=== PATIENT | female | born 1985 | race Caucasian/White ===

== ENCOUNTER 2016-11-19 14:25 | Inpatient (IN) ==
--- OUTSIDE RECORDS SUMMARY | 2016-11-19 14:49 | External Medical Summary | CCD ---
:1985 Author Name ADELITAREJI Eldon Address [address], [place] [id number] Care Team Providers Name Role Phone WENCESLAO LIZAMA Attending Physician Unavailable MSLOAN Chau Registered Nurse Unavailable Vital Signs Vital Sign Value Unit Date/Time Recent/Initial? Weight Measured 242 lbs 06/06/2015 19:00 Initial VS Height 68 in 06/06/2015 19:00 Initial VS BMI (Body Mass Index) 36.8 kg/m^2 06/06/2015 19:00 Initial VS BSA (Body Surface 2.29 m^2 06/06/2015 19:00 Initial VS Area) BP Systolic 118 mmHg 06/07/2015 09:10 Initial VS BP Diastolic 54 mmHg 06/07/2015 09:10 Initial VS Respiratory Rate 18 bpm 06/07/2015 09:10 Initial VS Heart Rate 76 bpm 06/07/2015 09:10 Initial VS O2 % BldC Oximetry 98 % 06/07/2015 09:10 Initial VS Body Temperature 98 degrees 06/07/2015 09:10 Initial VS O2 % BldC Oximetry 98 % 06/09/2015 00:05 Most Recent VS BP Systolic 134 mmHg 06/09/2015 07:25 Most Recent VS BP Diastolic 93 mmHg 06/09/2015 07:25 Most Recent VS Respiratory Rate 18 bpm 06/09/2015 07:25 Most Recent VS Heart Rate 108 bpm 06/09/2015 07:25 Most Recent VS Body Temperature 98 degrees 06/09/2015 07:25 Most Recent VS Allergies Allergy Code Allergy Type Reaction Status BIAXIN 058367 Drug allergy Active Procedures Procedure Code Procedure Type Date Extraction of Products of 99F08B5 ICD-10 PCS 06/07/2015 Conception, Low Cervical, Open Approach Transfusion of Nonautologous Red 51716Y3 ICD-10 PCS 06/07/2015 Blood Cells into Peripheral Vein, Percutaneous Approach CBC WITH DIFFERENTIAL 7099578 SNOMED CT 06/07/2015 CBC WITH DIFFERENTIAL 0761415 SNOMED CT 06/07/2015 CBC WITH DIFFERENTIAL 9916873 SNOMED CT 06/06/2015 History of Immunizations Unknown or Not Available. Problems Problem Code Start Date Resolved Date Status Normal 27304760 Active delivery, [id number] Active delivered Results CHEM 14 COMPREHENSIVE METABOLIC PANEL - Collect Date/Time: 06/07/2015 15:54 Test Name Code Test Result Test Units Test Ref Range GLUCOSE 2345-7 111 mg/dl L=65 H=110 BUN 3094-0 7 mg/dl L=7 H=18 CREATININE 2160-0 0.7 mg/dl L=0.7 H=1.2 BUN/CREAT 9.72 RATIO SODIUM 2951-2 133 mmol/L L=137 H=145 POTASSIUM 2823-3 4.5 mmol/L L=3.4 H=5.3 CHLORIDE 2075-0 108 mmol/L L=98 H=107 CO2 2028-9 19.0 mmol/L L=22.0 H=30.0 AST/SGOT 21 U/L L=5 H=40 ALK PHOS 85 IU/L L=32 H=91 T BILIRUBIN 0.40 mg/dl L=0.20 H=1.30 TOTAL PROTEIN 4.20 g/dl L=5.49 H=7.83 ALBUMIN 1751-7 2.1 g/dl L=3.3 H=5.0 CALCIUM 94488-9 7.9 mg/dl L=8.4 H=10.3 ALT/SGPT 9 U/L L=9 H=72 AGE 29 yrs GFR NonAA 104 GFR AA 126 CBC WITH DIFFERENTIAL - Collect Date/Time: 06/07/2015 15:54 Test Name Code Test Result Test Units Test Ref Range WBC 49839-7 14.4 th/ul L=4.3 H=11.0 NEUTROPHILS 770-8 86.6 % L=50.0 H=76.0 LYMPHOCYTES 736-9 8.5 % L=20.0 H=40.0 MONOCYTES 5905-5 4.7 % L=2.0 H=12.0 EOSINOPHILS 713-8 0.0 % L=1.0 H=3.0 BASOPHILS 706-2 0.2 % L=0.0 H=1.0 RBC 789-8 2.99 mil/ul L=4.20 H=5.40 HEMOGLOBIN 718-7 8.7 g/dl L=12.0 H=16.0 HEMATOCRIT 4544-3 26.9 % L=38.0 H=47.0 MCV 787-2 90 fL L=82 H=100 MCH 785-6 29.0 pg L=26.0 H=33.0 MCHC 786-4 32.3 g/dl L=31.0 H=36.0 RDW 788-0 13.2 % L=11.5 H=14.5 NEUTROPHILS 751-8 12.5 th/ul L=1.4 H=6.5 LYMPHOCYTES 731-0 1.2 th/ul L=1.0 H=4.0 MONOCYTES 742-7 0.7 th/ul L=0.0 H=0.7 EOSINOPHILS 711-2 0.0 th/ul L=0.0 H=0.7 BASOPHILS 704-7 0.0 th/ul L=0.0 H=0.[address] 777-3 203 th/ul L=150 H=375 BANDS MANUAL 0 % L=2 H=6 NEUT MANUAL 83 % L=50 H=70 LYMS MANUAL 12 % L=20 H=40 MONOS MANUAL 5 % L=2 H=12 EOS MANUAL 0 % L=1 H=3 BASO MANUAL 0 % L=0 H=1 METAS MANUAL 0 % MYELOS MANUAL 0 % BLASTS MANUAL 0 % ATYP LYMPHS 0 % PROLYMPH MANUAL 0 L=0 H=0 TOTAL DIFF CELLS 100 L=100 H=100 CBC WITH DIFFERENTIAL - Collect Date/Time: 06/07/2015 12:38 Test Name Code Test Result Test Units Test Ref Range WBC 59534-1 12.2 th/ul L=4.3 H=11.0 NEUTROPHILS 770-8 82.1 % L=50.0 H=76.0 LYMPHOCYTES 736-9 12.3 % L=20.0 H=40.0 MONOCYTES 5905-5 5.3 % L=2.0 H=12.0 EOSINOPHILS 713-8 0.1 % L=1.0 H=3.0 BASOPHILS 706-2 0.2 % L=0.0 H=1.0 RBC 789-8 2.93 mil/ul L=4.20 H=5.40 HEMOGLOBIN 718-7 8.3 g/dl L=12.0 H=16.0 HEMATOCRIT 4544-3 26.0 % L=38.0 H=47.0 MCV 787-2 89 fL L=82 H=100 MCH 785-6 28.3 pg L=26.0 H=33.0 MCHC 786-4 32.0 g/dl L=31.0 H=36.0 RDW 788-0 12.9 % L=11.5 H=14.5 NEUTROPHILS 751-8 10.0 th/ul L=1.4 H=6.5 LYMPHOCYTES 731-0 1.5 th/ul L=1.0 H=4.0 MONOCYTES 742-7 0.6 th/ul L=0.0 H=0.7 EOSINOPHILS 711-2 0.0 th/ul L=0.0 H=0.7 BASOPHILS 704-7 0.0 th/ul L=0.0 H=0.[address] 777-3 213 th/ul L=150 H=375 BANDS MANUAL 0 % L=2 H=6 NEUT MANUAL 82 % L=50 H=70 LYMS MANUAL 9 % L=20 H=40 MONOS MANUAL 9 % L=2 H=12 EOS MANUAL 0 % L=1 H=3 BASO MANUAL 0 % L=0 H=1 METAS MANUAL 0 % MYELOS MANUAL 0 % BLASTS MANUAL 0 % ATYP LYMPHS 0 % PROLYMPH MANUAL 0 L=0 H=0 TOTAL DIFF CELLS 100 L=100 H=100 CBC WITH DIFFERENTIAL - Collect Date/Time: 06/06/2015 10:18 Test Name Code Test Result Test Units Test Ref Range WBC 48426-7 8.1 th/ul L=4.3 H=11.0 NEUTROPHILS 770-8 75.7 % L=50.0 H=76.0 LYMPHOCYTES 736-9 16.5 % L=20.0 H=40.0 MONOCYTES 5905-5 7.2 % L=2.0 H=12.0 EOSINOPHILS 713-8 0.3 % L=1.0 H=3.0 BASOPHILS 706-2 0.3 % L=0.0 H=1.0 RBC 789-8 4.00 mil/ul L=4.20 H=5.40 HEMOGLOBIN 718-7 11.6 g/dl L=12.0 H=16.0 HEMATOCRIT 4544-3 34.8 % L=38.0 H=47.0 MCV 787-2 87 fL L=82 H=100 MCH 785-6 29.0 pg L=26.0 H=33.0 MCHC 786-4 33.3 g/dl L=31.0 H=36.0 RDW 788-0 12.7 % L=11.5 H=14.5 NEUTROPHILS 751-8 6.1 th/ul L=1.4 H=6.5 LYMPHOCYTES 731-0 1.3 th/ul L=1.0 H=4.0 MONOCYTES 742-7 0.6 th/ul L=0.0 H=0.7 EOSINOPHILS 711-2 0.0 th/ul L=0.0 H=0.7 BASOPHILS 704-7 0.0 th/ul L=0.0 H=0.[address] 777-3 159 th/ul L=150 H=375 H&H (HEMOGLOBIN & HEMATOCRIT) - Collect Date/Time: 06/08/2015 05:48 Test Name Code Test Result Test Units Test Ref Range HEMOGLOBIN 718-7 7.6 g/dl L=12.0 H=16.0 HEMATOCRIT 4544-3 22.7 % L=38.0 H=47.0 TYPE AND SCREEN - Collect Date/Time: 06/06/2015 10:18 Test Name Code Test Result Test Units Test Ref Range ABO TYPE O N/A A, B, AB OR O RH TYPE POSITIVE N/A POSITIVE OR NEGATIVE AB SCREEN NEGATIVE N/A NORMAL=NONE DETECTED CHEM 8 (BASIC METABOLIC PROFILE) - Collect Date/Time: 06/07/2015 12:38 Test Name Code Test Result Test Units Test Ref Range BUN 3094-0 6 mg/dl L=7 H=18 CREATININE 2160-0 0.6 mg/dl L=0.7 H=1.2 SODIUM 2951-2 134 mmol/L L=137 H=145 POTASSIUM 2823-3 3.7 mmol/L L=3.4 H=5.3 CHLORIDE 2075-0 110 mmol/L L=98 H=107 CO2 2028-9 19.0 mmol/L L=22.0 H=30.0 GLUCOSE 2345-7 104 mg/dl L=65 H=110 CALCIUM 72848-9 8.1 mg/dl L=8.4 H=10.3 Active Medications Medication Code Dose Units Frequency Route Modification Start Date/Time Docusate 4580535 100 MILLIGRAMS TWO TIMES PO 06/09/2015 Sodium 100MG PER DAY 08:49 Oral Capsule Prescription Detail 100 MILLIGRAMS PO TWO TIMES PER DAY Ibuprofen 328166 600 MILLIGRAMS NEEDED PO 06/09/2015 600MG Oral EVERY 6 08:49 Tablet HOURS Prescription Detail 600 MILLIGRAMS PO NEEDED EVERY 6 HOURS Lansinoh HPA 37086492536 1 EA NEEDED TOPICAL 06/09/2015 Lanolin Topical PRN APPLICATION 08:49 application Ointment Prescription Detail APPLY 1 EA TOPICAL APPLICATION NEEDED PRN oxyCODONE 7209636 1 TABLET NEEDED PO 06/09/2015 HCl-acetaminophen EVERY 4 08:49 5MG-325MG Oral Tablet HOURS Prescription Detail 1 TABLET PO NEEDED EVERY 4 HOURS Medications Administered During Visit Medication Dose Units Frequency Route Date/Time of Last Dose SALINE FLUSH 5ML 3 ML PRN IVP 06/07/2015 20:25 SYRINGE OXYCODONE/APAP(PER 1 TAB PRN Q4H PO 06/08/2015 13:31 COCET) 5/325 TAB OXYCODONE/APAP(PER 2 TAB PRN Q4H PO 06/09/2015 07:28 COCET) 5/325 TAB IBUPROFEN(MOTRIN) 600 MG PRN Q6H PO 06/09/2015 00:27 600 MG TAB DOCUSATE 100 MG BID PO 06/09/2015 07:29 SODIUM(COLACE) 100 MG CAP KETOROLAC 30 MG PRN Q6H IVP 06/07/2015 11:19 (TORADOL) 30MG VIAL NS 0.9% 1000ML X1 LVP 06/07/2015 13:09 CALCIUM CARB(TUMS) 1000 MG PRN PO 06/07/2015 13:31 500 MG TAB FUROSEMIDE(LASIX) 20 MG X1 IVP 06/07/2015 17:16 40MG/4ML VIAL Encounters Encounter Diagnosis Diagnosis Code Start Date Severe pre-eclampsia, third trimester O1413 06/06/2015 Social History Smoking Status Code Start Date End Date Current every day smoker [id number] Patient Decision Aids Unknown or Not Available. Discharge Instructions You were admitted to [facility] on 06/06/2015 18:45 with a principal diagnosis of Severe pre-eclampsia, third trimester You had the following procedures done: Extraction of Products of Conception, Low Cervical, Open Approach Transfusion of Nonautologous Red Blood Cells into Peripheral Vein, Percutaneous Approach You had the following tests done: CBC WITH DIFFERENTIAL CBC WITH DIFFERENTIAL CBC WITH DIFFERENTIAL CHEM 14 COMPREHENSIVE METABOLIC PANEL CHEM 8 (BASIC METABOLIC PROFILE) H&H (HEMOGLOBIN & HEMATOCRIT) TYPE AND SCREEN You were discharged from [facility] on 06/09/2015 11:15 Should you have any questions prior to discharge, please contact a member of your healthcare team. If you have left the hospital and have any questions, please contact your primary care physician. Discharge Notes: Discharge teaching given, patient voices understanding. Written prescriptions given to patient. Barrera Marin RN accompanied ambulatory pt with infant to private vehicle without incident. secured in rearfacing carseat. Belongings sent with patient. Chief Complaint and Reason For Visit Chief Complaint Date of Onset delivery in hospital Function Status Unknown or Not Available. Plan of Care Unknown or Not Available. Referral/Transition of Care Unknown or Not Available.
--- OUTSIDE RECORDS SUMMARY | 2016-11-19 14:49 | External Medical Summary ---
:1985 Author Organization [facility] Address [address], [address] [place], [place] [address] Care Team Providers Name Role Phone Arielle Irving Unavailable Unavailable PROBLEMS Unknown Problems ALLERGIES Unknown Allergies SOCIAL HISTORY No smoking Hx information available PLAN OF CARE VITAL SIGNS MEDICATIONS Medication Instructions Dosage Frequency Start End Date Duration Status Date PredniSONE 20 Orally Once a day 2 tablet 24h Aug, 10 days Active MG daily x 5 2017 days, then 1 daily x5 days RESULTS No Results PROCEDURES No Known procedures IMMUNIZATIONS No Known Immunizations
--- OUTSIDE RECORDS SUMMARY | 2016-11-19 14:49 | External Medical Summary | Continuity of Care Document ---
:1985 Author Organization [facility] Allergies Active Description Code Type Severity Reaction Onset Reported/ Identified Relationship Clinical to Patient Status Yes clarithromyc 3608 1 N/A breathing in problems Medications Problems Procedures Results Encounters ACCT No. Visit Discharge Status Pt. Type Provider Facility Loc./Unit Complaint Date/Time [id number] 10/31/2016 10/31/2016 CLS [facility], 13:15:00 23:59:59 Dipesh Rivera
[2016-11-19 14:53] VITALS: BMI 31.6
[2016-11-19] MEDS ORDERED: NS 1,000 ML IV ONE (14:54)
[2016-11-19] MEDS ORDERED: NS 1,000 ML IV SCH (15:00)
[2016-11-19] MEDS: CEFTRIAXONE 1 G in NS 100 ML IV SCH (15:22)
--- NOTE | 2016-11-19 15:58 | Ultrasound Report ---
Indication: Sepsis/UTI PROCEDURE: US renal BI: Encounter: Initial Comparison: None Technique: Grayscale and color Doppler sonographic imaging of both kidneys was performed. FINDINGS: Both kidneys are present with normal cortical thickness and echogenicity. No evidence for collecting system dilatation, contour deforming mass, nephrolithiasis, or abnormal perinephric fluid collection. The right kidney measures 12.4 cm in length, and the left kidney measures 11.4 cm in length. IMPRESSION: Normal renal sonogram. .
--- NOTE | 2016-11-19 16:00 | Ultrasound Report ---
Indication: Sepsis/UTI/ check PROCEDURE: US OB <= 14 weeks fetus: Age by LMP is 12 weeks and 4 days. This correlates to an DEVORA of May 30, 2017. Comparison: None Technique: Transabdominal sonographic pelvic imaging was performed. Findings: Imaging demonstrates a single living intrauterine gestation. The appearance of the embryo and gestation is normal. cardiac activity was detected at a rate of 176 bpm. Both ovaries were not seen. No abnormal adnexal mass. No free fluid. biometry: Magness rump length 6.42 cm: 12 weeks and 6 days. Impression: Single living intrauterine gestation with estimated gestational age of 12 weeks and 6 days by ultrasound. This correlates to an DEVORA of May 28, 2017. No acute abnormality seen. .
[2016-11-19] MEDS: ACETAMINOPHEN 325 MG TABLET PO PRN (16:40)
--- NOTE | 2016-11-19 16:48 | OB/GYN History & Physical ---
- History of Present Illness Date of Admission: 11/19/16 14:48 Reason for Admission: other History of Present Illness: 31 year old female presented to office with 3 day history of fever not resolved with conservative measures and Tylenol. She reported sick contacts with her son who had a fever for 12 hours and then improved. She denied significant N/V has had some Nausea with . She reports a headache when she started feeling bad but denies pain in her neck, or sensitivity to light. She is still in her first trimester and denies FM. She denies Cough, SOA or chest pain. She denies Diarrhea/constipation. Reports mild anorexia. She reports some spotting which started today is unsure if it is vaginal or urethral. She reports a history iof signifcant UTIs in past but minimal symptoms of UTI today. In the Office she was noted to febrile, Tachycardiac, blood pressure slightly elevated. Cervix was noted to closed, Lungs where CTAB, Abd was soft NT/ND, No CVA tenderness. UA showed gross blood, positive Leuks and WBC. Last menstrual period: 08/23/16 Expected Date of Delivery: 05/30/17 : 2 Para: 1 - OB History #1 Delivery Type: vaginal delivery Year: 2015 Complications: PLTCS Review of Systems - Review of Systems All systems: reviewed and no additional remarkable complaints except as stated - Constitutional Constitutional: Present: as per HPI - Cardiovascular Cardiovascular: Present: as per HPI - Respiratory Respiratory: Present: as per HPI - Gastrointestinal Gastrointestinal: Present: as per HPI - Genitourinary Genitourinary: Present: as per HPI Menstruation: Present: as per HPI, cycle < 21 days, cycle > 35 days, menses 1-7 days - Musculoskeletal Musculoskeletal: Present: as per HPI - Integumentary/Breasts Integumentary: Present: as per HPI Breasts: as per HPI - Neurological Neurological: Present: as per HPI - Psychiatric Psychiatric: Present: as per HPI PFS Patient Stated Medical History Hx Urinary Tract Infection Yes: 2015 Now Yes Medical History Updates: History of blood transfusion Surgical History: PLTCS Family History: Non Contributory - Social History Smoking status: Never smoker Alcohol intake frequency: does not drink Household members: spouse, children Medications Home Medications Medication Instructions Recorded Confirmed Type Pnv No.95/Ferrous Fum/Folic AC 1 each PO HS 11/19/16 11/19/16 History [ Multivitamin Tablet] Allergies Allergy/AdvReac Type Severity Reaction Status Date / Time clarithromycin [From Biaxin] Allergy Verified 11/19/16 14:51 Exam Vital signs: Temperature 100 F 11/19/16 15:17 Pulse Rate 91 11/19/16 16:00 Respiratory Rate 18 11/19/16 16:00 Blood Pressure 156/73 H 11/19/16 16:00 Pulse Oximetry 99 11/19/16 16:00 - Constitutional Present: mild distress - Neck Exam Present: supple, full ROM. Absent: lymphadenopathy - Chest/Breast/Axilla Exam Chest wall: Absent: tenderness - Respiratory Exam Present: CTA bilaterally - Cardiovascular Exam Present: RRR, tachycardia - Abdominal Exam Present: soft, non distended, non tender. Absent: tenderness - Extremities Exam Extremities: Present: no edema, non tender, full ROM - Neurological Exam Present: alert, oriented X3 - Skin Exam Present: intact - Psychiatric Exam Present: normal affect PROC TECH Results - Labs CBC & Chem 7: 11/19/16 15:07 11/19/16 15:07 Labs: UA Ur Collection Type Urine, clean catch 11/19/16 15:02 Urine Color Yellow (YELLOW) 11/19/16 15:02 Urine pH 5.5 (5.0-8.0) 11/19/16 15:02 Ur Specific [place] <=1.005 (1.015-1.025) L 11/19/16 15:02 Urine Protein Negative (NEGATIVE) 11/19/16 15:02 Urine Glucose (UA) Negative (NEGATIVE) 11/19/16 15:02 Urine Ketones Negative (NEGATIVE) 11/19/16 15:02 Urine Occult Blood 1+ (NEGATIVE) A 11/19/16 15:02 Urine Nitrate Negative (NEGATIVE) 11/19/16 15:02 Urine Bilirubin Negative (NEGATIVE) 11/19/16 15:02 Urine Urobilinogen 0.2 EU/DL (NORMAL) 11/19/16 15:02 Ur Leukocyte Esterase Negative (NEGATIVE) 11/19/16 15:02 Antepartum Assessment and Plan (1) Sepsis due to other etiology Current visit: Yes Status: Acute (2) and infectious disease in first trimester Current visit: Yes Status: Acute - Additional Plan Plan: other (Admit to CCU for IV fluids, ABX, Imaging Negative , Consult [facility])
--- NOTE | 2016-11-19 17:22 | Consult Note ---
Consult Information - Data of Consult Patient: new to practice Consult date: 11/19/16 Requesting Physician: Dipesh Schroeder, DO - Consult Narrative Reason for consult: fever, possible pyelonephritis History of present illness: Patient is a very pleasant 31-year-old female who is 12 weeks . She stated that she developed a fever 2 nights ago and has had fevers off and on since then. Highest fever was today and Dr. schroeder's office and was 102.8. She has had some intermittent chills and will occasionally sweat when her fever is breaking. She is taking Tylenol at home which seems to take the fever down. She's had some mild headache. She has some mild nausea but no emesis. She states she has had nausea with her but it seemed to be getting better and now she is a little nauseated again. She's not had any vomiting. She has otherwise had no other symptoms. She denies any symptoms of URI. She denies any cough or shortness of breath. She denies any chest pain. She denies any vomiting. She denies diarrhea. She denies dysuria, frequency or urgency to urinate. She denies any back pain. She denies any skin sores or rashes. She denies any numbness, tingling or weakness. She feels fairly well right now after fever has improved. In the doctor's office she was tachycardic with a heart rate of 119 but not hypotensive with blood pressure of 147/93. She was directly admitted to CCU for possible sepsis. Urinalysis at Dr. schroeder's office showed 2+ leukocyte esterase and positive white blood cells. It was sent for culture. Nitrite was negative. The patient thought she had some spotting 1 today but thinks it might have been blood in her urine. She did have frequent urinary tract infections with her last and has had some urinary tract infections while not although all of these previous UTIs were symptomatic with frequency, urgency or lateral discomfort. I was called to Dr. schroeder and asked to see the patient consultation for fever and possible pyelonephritis. The patient does note that her son who is a toddler had a fever and lethargy this weekend but symptoms only lasted about 12 hours and resolved. He did not have any other symptoms. She has had no other sick contacts. [facility] Patient Stated Medical History Hx Urinary Tract Infection Yes: 2015 Now Yes The patient had preeclampsia with her previous Frequent UTIs Medical History Updates: History of blood transfusion Surgical History: PLTCS. Tonsillectomy and adenoidectomy Family History: Her grandfather had kidney problems and frequent UTIs - Social History Smoking status: Never smoker Alcohol intake frequency: does not drink Current occupational status: other (homemaker) Review of Systems Review of systems: Comprehensive review of systems is negative other than the above in history of present illness - Integumentary/Breasts Breasts: as per HPI Medications Home Medications Medication Instructions Recorded Confirmed Type Pnv No.95/Ferrous Fum/Folic AC 1 each PO HS 11/19/16 11/19/16 History [ Multivitamin Tablet] Allergies Allergy/AdvReac Type Severity Reaction Status Date / Time clarithromycin [From Biaxin] Allergy Verified 11/19/16 14:51 Exam Vital Signs: Temperature 100 F 11/19/16 15:17 Pulse Rate 90 11/19/16 17:00 Respiratory Rate 16 11/19/16 17:00 Blood Pressure 154/64 H 11/19/16 17:00 Pulse Oximetry 98 11/19/16 17:00 Oxygen Delivery Method Room Air Height/Weight/BMI: Height 1.75 m Weight 97.3 kg Body Mass Index 31.6 Comments: GEN-alert, oriented, no acute distress. Moves all 4 extremities without difficulties HEENT-sclera anicteric, pupils equal, oropharynx is moist NECK-supple, no lymphadenopathy CV-regular rate and rhythm without murmur, S3 or S4 CHEST-clear to auscultation bilaterally ABD-soft, nontender, nondistended, no pain over the bladder or uterus to palpation. Normal bowel sounds -no [place] EXT-no edema NEURO-alert and oriented 3, moves all 4 extremities without difficulty, no focal deficits noted SKIN-warm and dry and without rashes. Results - Labs CBC & Chem 7: 11/19/16 15:07 11/19/16 15:07 Labs: Blood cultures are pending Urine cultures are pending Urinalysis here shows specific gravity less than 1.005, S1 occult blood, no RBCs or white blood cells seen, trace bacteria Lactate is 1.0 Liver enzymes are all normal Microbiology Results: Microbiology 11/19/16 15:07 Peripheral/Iv Start Blood Culture - Preliminary Culture Initiated - Results Pending 11/19/16 15:08 Peripheral/Iv Start Blood Culture - Preliminary Culture Initiated - Results Pending 11/19/16 15:02 Urine, Voided (Cc/notcc) Urine Culture - Preliminary Culture Initiated - Results Pending - Imaging and Cardiology US - abdomen Additional comments: Renal sonogram was obtained and was normal Normal ultrasound Assessment and Plan Assessment and Plan: Impression Fever-possibly secondary to UTI with abnormal urinalysis as an outpatient History of frequent UTIs 12 week Hypokalemia Mild headache Plan Patient has received 1 L of IV fluids. We'll hold off on any further fluids if patient is eating and drinking well and lactate remains normal. Agree with Rocephin 1 g IV daily. Await urine culture from the clinic and from this hospitalization Repeat lactate this evening Replace potassium Tylenol for fever CBC with differential and basic metabolic profile tomorrow Thank you for this consultation. Francoise follow along with you Hospital Course Summary Disclaimer: The visit summary below is not to be considered part of the above Progress Note. Sepsis Assessment - Evaluation Sepsis screening result: No Definite Risk
[2016-11-20] MEDS: ACETAMINOPHEN 325 MG TABLET PO PRN (00:09)
--- NOTE | 2016-11-20 10:30 | Progress Note ---
Subjective: The patient states that she is feeling okay. She had a low-grade fever overnight and was a little sweaty but did not have chills. She is eating and drinking well. She denies any upper respiratory infection symptoms. She denies any cough. She denies any dysuria. She denies any diarrhea. She denies any abdominal pain. She denies back pain. She has no complaints. Objective Vital signs: Temperature 98.7 F 11/20/16 07:15 Pulse Rate 89 11/20/16 09:00 Respiratory Rate 25 H 11/20/16 09:00 Blood Pressure 141/78 H 11/20/16 09:00 Pulse Oximetry 98 11/20/16 09:00 Oxygen Delivery Method Room Air Height/Weight/BMI: Height 1.75 m Weight 97.6 kg Body Mass Index 31.6 Comments: GEN-alert, oriented, no acute distress HEENT-sclera anicteric, oropharynx is moist NECK-supple CV-regular rate and rhythm CHEST-clear to auscultation bilaterally ABD-soft, nontender, nondistended with positive bowel sounds Back-no CVA tenderness -no [place] EXT-no edema, SCDs are on NEURO-no focal deficits SKIN-no rashes Results - Labs CBC & Chem 7: 11/20/16 04:27 11/20/16 04:27 Labs: Lactate normal 2 yesterday Microbiology Results: Microbiology 11/19/16 15:02 Urine, Voided (Cc/notcc) Urine Culture - Preliminary No Growth After 1 Day 11/19/16 15:07 Peripheral/Iv Start Blood Culture - Preliminary Culture Initiated - Results Pending 11/19/16 15:08 Peripheral/Iv Start Blood Culture - Preliminary Culture Initiated - Results Pending Assessment and Plan Assessment and Plan: 11/20/2016 -Dr. Kruger Impression Fever-possibly secondary to UTI with abnormal urinalysis as an outpatient. Urine culture here negative. Urine culture at the outpatient clinic is pending. Blood cultures here are negative. White count remains normal without left shift. Viral respiratory panel was negative. History of frequent UTIs 12 week Hypokalemia-resolved Mild headache Mild elevated blood pressure 140 systolic. History of preeclampsia. Plan Discussed with Dr. schroeder. He would like to keep her in the hospital on Rocephin today and likely discharge tomorrow if doing well. I will transfer the patient out of CCU and to the medical floor today. Increase activity as tolerated. Continue Rocephin. Overall, the patient appears to be doing well. Continue to monitor blood pressure. Sepsis Assessment - Evaluation Sepsis screening result: No Definite Risk Hospital Course Summary Disclaimer: The visit summary below is not to be considered part of the above Progress Note. Hospital Course: 11/19/2016 Impression Fever-possibly secondary to UTI with abnormal urinalysis as an outpatient History of frequent UTIs 12 week Hypokalemia Mild headache Plan Patient has received 1 L of IV fluids. We'll hold off on any further fluids if patient is eating and drinking well and lactate remains normal. Agree with Rocephin 1 g IV daily. Await urine culture from the clinic and from this hospitalization Repeat lactate this evening Replace potassium Tylenol for fever CBC with differential and basic metabolic profile tomorrow Thank you for this consultation. Francoise follow along with you 11/20/16 10:26
--- NOTE | 2016-11-20 11:10 | OB/GYN Progress Note ---
ENVIRONMENTAL FIELD PROFESSIONAL Progress Note - Subjective Today's Date: 11/20/16 Doing well. No complaints. No bleeding. No dysuria. No URI complaints. - Objective Vital signs: Temperature 98.7 F 11/20/16 07:15 Pulse Rate 89 11/20/16 09:00 Respiratory Rate 25 H 11/20/16 09:00 Blood Pressure 141/78 H 11/20/16 09:00 Pulse Oximetry 98 11/20/16 09:00 Oxygen Delivery Method Room Air Urine Output: good General: alert and oriented No acute distress. Laboratory Result: 11/20/16 04:27 11/20/16 04:27 Labs: UA Ur Collection Type Urine, clean catch 11/19/16 15:02 Urine Color Yellow (YELLOW) 11/19/16 15:02 Urine pH 5.5 (5.0-8.0) 11/19/16 15:02 Ur Specific [place] <=1.005 (1.015-1.025) L 11/19/16 15:02 Urine Protein Negative (NEGATIVE) 11/19/16 15:02 Urine Glucose (UA) Negative (NEGATIVE) 11/19/16 15:02 Urine Ketones Negative (NEGATIVE) 11/19/16 15:02 Urine Occult Blood 1+ (NEGATIVE) A 11/19/16 15:02 Urine Nitrate Negative (NEGATIVE) 11/19/16 15:02 Urine Bilirubin Negative (NEGATIVE) 11/19/16 15:02 Urine Urobilinogen 0.2 EU/DL (NORMAL) 11/19/16 15:02 Ur Leukocyte Esterase Negative (NEGATIVE) 11/19/16 15:02 - Assessment and Plan (1) Sepsis due to other etiology Assessment and Plan: Office urine culture is still pending. Dr. Kruger is transferring the patient out of the ICU. Dr. Obregon would like to continue her IV antibiotics for now and hopefully DC tomorrow.
[2016-11-20] MEDS: CEFTRIAXONE 1 G in NS 100 ML IV SCH (15:20)
[2016-11-21 00:27] VITALS: RESP 16
[2016-11-21 08:12] VITALS: BP 129/74; PULSE 90; O2SAT 100
[2016-11-21 08:22] VITALS: TEMP 97.3
--- NOTE | 2016-11-21 08:27 | Discharge Summary ---
[place] Information/Hospital Course Date of admission: 11/19/16 14:48 Anticipated date of discharge: 11/21/16 Attending Physician: Dipesh Obregon DO Consults: 11/19/16 15:04 Physician Consult [CONS] Routine Consulting Provider: Erika Kruger Reason For Exam: Sepsis Ordering Provider has Notified [employer] Laborer: Yes (1) Sepsis due to other etiology Status: Acute (2) and infectious disease in first trimester Status: Acute - Hospital Course Hospital Course: 11/19/2016 Impression Fever-possibly secondary to UTI with abnormal urinalysis as an outpatient History of frequent UTIs 12 week Hypokalemia Mild headache Plan Patient has received 1 L of IV fluids. We'll hold off on any further fluids if patient is eating and drinking well and lactate remains normal. Agree with Rocephin 1 g IV daily. Await urine culture from the clinic and from this hospitalization Repeat lactate this evening Replace potassium Tylenol for fever CBC with differential and basic metabolic profile tomorrow Thank you for this consultation. Willberry follow along with you 11/20/16 10:26 AF , UA negative Doing well 11/21/16 AF desires dismissal Imaging Studies: Renal Sono, ,14 wga sono Microbiology 11/19/16 15:02 Urine, Voided (Cc/notcc) Urine Culture - Final No Growth After 2 Days 11/19/16 15:07 Peripheral/Iv Start Blood Culture - Preliminary No Growth After 1 Day 11/19/16 15:08 Peripheral/Iv Start Blood Culture - Preliminary No Growth After 1 Day Laboratory: Abnormal Labs 11/19/16 11/19/16 11/19/16 15:02 15:07 15:07 Reactive Lymphs % 4.0 H Abs React Lymphs (Man) 0.3 H Potassium 3.3 L Chloride Creatinine 0.6 L Ur Specific [place] <=1.005 L Urine Occult Blood 1+ A Urine Bacteria Trace H 11/20/16 04:27 Reactive Lymphs % Abs React Lymphs (Man) Potassium Chloride 109 H Creatinine 0.5 L Ur Specific [place] Urine Occult Blood Urine Bacteria SPECIAL SHOPPER Exam Vital signs: Temperature 97.3 F 11/21/16 08:00 Pulse Rate 90 11/21/16 08:00 Respiratory Rate 16 11/21/16 08:00 Blood Pressure 129/74 11/21/16 08:00 Pulse Oximetry 100 11/21/16 08:00 Oxygen Delivery Method Room Air - Constitutional Present: no acute distress. Absent: mild distress - Routine Neck Exam Present: supple, full ROM. Absent: lymphadenopathy - Routine Chest/Breast/Axilla Exam Chest wall: Absent: tenderness - Routine Respiratory Exam Present: CTA bilaterally - Routine Cardiovascular Exam Present: RRR, tachycardia - Routine Abdominal Exam Present: soft, non distended, non tender. Absent: tenderness - Routine Extremities Exam Extremities: Present: no edema, non tender, full ROM Discharge Plan - Med Rec/Dispo Referrals/Follow Up: Dipesh Obregon DO [Physician] - [place] Instructions: Sepsis (GEN) Prescriptions: No Action Pnv No.95/Ferrous Fum/Folic AC [ Multivitamin Tablet] 1 each PO HS - Disposition 01 Discharged Home, Self-Care
--- NOTE | 2016-11-21 12:03 | Discharge Summary ---
ATTENDING PHYSICIAN Dipesh Obregon, DO CONSULTATIONS Erika Kruger MD, hospitalist ADMISSION DIAGNOSIS 1. at approximately 12 weeks gestational age. 2. Infectious disease in trimester of . 3. Presumed sepsis secondary to SIRS criteria. HISTORY OF PRESENT ILLNESS This is a very pleasant 31-year-old female who is 12 weeks . As stated, she had developed fever two nights ago and has had fevers off and on since then. Her highest fever today was 102.8 which was noted in the office. She had had some intermittent chills with occasional sweating when her fever is breaking. She is taking Tylenol at home which seems to take the fever down but does not resolve and she has some mild headache. She had had some nausea but no emesis and she states that she had continued to have nausea with , seemed to be getting better. She otherwise does not report any upper respiratory tract symptoms or any symptoms of urinary tract infection. In the office, she was noted to be tachycardic with a heart rate of 119 and hypertensive with a blood pressure of 147/93, along with her fever and had a grossly abnormal UA in the office that reported 2+ leukocytes, gross blood, negative nitrites, positive WBCs. At this time, she had met SIRS criteria and possible complicated cystitis, pyelonephritis and she was admitted to the CCU as a direct admit from the office. HOSPITAL COURSE She was admitted the first night and started on Rocephin 1 gram IV q. 24 hours and given one liter of fluid bolus and placed in the ICU where the sepsis protocol including blood cultures, respiratory cultures, urine culture and lactate was observed. Her lactate was noted to be normal on the first day and evening. She responded well to IV fluids and Tylenol and remained afebrile and vital signs improved. On hospital day #2, she was transferred out of the ICU to the regular floor where lactate was repeated and noted to be normal. She continued to be afebrile and on hospital day #3 she was dismissed to home. Her laboratory, significant, was a renal sono that was negative and a less than 14 week ultrasound which was within normal limits. Her urine culture was negative along with her blood cultures x2. Respiratory culture was negative. Her urine culture in the office also revealed normal urogenital justin. It is presumed that patient had a viral infection, no bacterial source for her infection, and is doing well, and is discharged home. She will follow up for her routine OB visit next week. No antibiotics will be prescribed at home. She is to continue her vitamin. No laboratory pending, no laboratory to follow up as an outpatient. YOGESH
== END 2016-11-21 09:57 | disposition home or self-care (01) | DRG 781 ==
LOC: CCU → MED 11-20 13:28
PROVIDERS: ADMIT Obstetrics & Gynecology; ATTEND Obstetrics & Gynecology

== ENCOUNTER 2017-05-09 05:28 | Inpatient (IN) ==
[2017-05-09] MEDS ORDERED: CEFAZOLIN PREMIX (MC ONLY) 2 GM/50 ML BAG IV ONE (05:31)
[2017-05-09] MEDS ORDERED: CITRIC ACID/SODIUM CITRATE 30ml PO ONE (05:31)
[2017-05-09] MEDS ORDERED: FAMOTIDINE PB 20 MG/50 ML BAG IV ONE (05:31)
[2017-05-09 05:43] VITALS: BMI 33.8
[2017-05-09] MEDS: LR 1,000 ML IV SCH ×2 (06:18→06:19)
--- NOTE | 2017-05-09 07:03 | Anesthesia Preoperative Report ---
Anesthesia Epidural/Spinal Rec - Date and Time Date: 05/09/17 Procedure: Plan: Spinal - Vital Signs Vital Signs: Temperature 97.8 F 05/09/17 05:35 Pulse Rate 94 05/09/17 05:35 Respiratory Rate 20 05/09/17 05:35 Blood Pressure 125/81 05/09/17 05:35 Pulse Oximetry 98 05/09/17 05:35 /Para: P:1 - Medictaions & Allergies Inpatient Medications: Current Medications Lactated Ringer's (Lactated Ringers) 1,000 mls @ 999 mls/hr IV .Q1H1M ESTRADA Last Admin: 05/09/17 06:19 Dose: 999 mls/hr Allergies/Adverse Reactions: Allergies Allergy/AdvReac Type Severity Reaction Status Date / Time clarithromycin [From Biaxin] Allergy Verified 04/26/17 11:30 - Home Medications Home Medications: Home Medications Medication Instructions Recorded Confirmed Type Pnv No.95/Ferrous Fum/Folic AC 1 each PO HS 11/19/16 04/26/17 History [ Multivitamin Tablet] Mapap Regular Strength 325 mg 650 mg PO PRN PRN 03/18/17 04/26/17 History tablet Zantac (Ranitidine) 150 mg capsule 150 mg PO PRN PRN cap 03/18/17 04/26/17 History Insulin Detemir [Levemir Flextouch] 64 unit SQ HS 04/26/17 04/26/17 History - Medical History Respiratory: DENIES: Asthma, Bronchitis, Chronic Obstructive Pulmonary Disease (COPD), Dyspnea, Orthopnea, Pulmonary Embolism, Pneumonia, Upper Respiratory Infection, Pulmonary Edema, Sleep Apnea, Tuberculosis, Other Cardiovascular: DENIES: Abnormal EKG, Angina, Arrhythmia, Congestive Heart Failure, Coronary Artery Disease, Heart Murmur, Hypertension, Hypotension, High Cholesterol, Myocardial Infarction, Rheumatic Fever, Valvular Heart Disease, Other Gastrointestional: Reports: Gastroesophageal Reflux Disease DENIES: Obstructive Bowel, Hepatitis, Cirrhosis, Nausea or Vomiting Present, Gastrointestinal Bleeding, Hiatal Hernia, Ulcer, Morbid Obesity, Other Neuro/Musculoskeletal: Reports: Other ([place] Palsy) Denies: Depression Renal/Endocrine: Reports: Other (gestational) Other History: Reports: Now, Blood Transfusions (2016) DENIES: Anesthesia Reactions - Surgical History HEENT Surgeries: Reports: Nose Surgery (1993), Tonsillectomy (1993) Reproductive Surgery/Treatment: Reports: Section Anesthesia Reactions: None Hx Family Anesthesia Reaction: No History of Motion Sickness: No - Social History Smoking Status: Never smoker Second Hand Exposure: No Substance Use Type: does not use Alcohol Intake Frequency: does not drink Hx Chewing Tobacco Use: No - Pertinent Findings Lab Data: CBC and BMP 05/09/17 05:46 - Physical Exam Respiratory Exam: lungs clear, bilateral breath sounds equal Cardiovascular Exam: regular rate and rhythm, no murmur - Airway Assessment Mallampati Score: II TMD: 3 Fingerbreadths Neck Extension: good Overall Assessment: may be difficult mask vent, may be difficult intubation - ASA ASA Score: 2 - Discussion Discussion: Discussed risks/options/alternatives of anesthesia and questions answered. Patient consents. Nursing pain assessment noted. Anesthesia Discussion: spouse Attestation Statement: Prior to the delivery of any anesthetic medication, I examined the patient, developed the plan, obtained the patient's consent and discussed the risk and benefits of the procedure with the patient/guardian.
[2017-05-09] MEDS ORDERED: TRANEXAMIC ACID 1,000 MG in NS 100 ML IV ONE (07:10)
[2017-05-09] MEDS ORDERED: MORPHINE SULFATE PF 5mg/10ml INJ (Duramorph) ONE (07:13)
[2017-05-09] MEDS ORDERED: ONDANSETRON 4 MG/2 ML INJECTION ONE (07:14)
[2017-05-09] MEDS ORDERED: FentaNYL 100 MCG/2 ML INJECTION ONE (07:14)
[2017-05-09] MEDS ORDERED: EPHEDRINE 50mg/ml INJECTION ONE (07:26)
[2017-05-09] MEDS ORDERED: SALINE FLUSH 10ml SYRINGE ONE (07:27)
[2017-05-09] MEDS ORDERED: OXYTOCIN BOLUS BAG 30 UNIT/500 ML ML IV SCH (08:15)
--- NOTE | 2017-05-09 08:35 | Operative Note ---
Operative Note - Date of Operation Date of Operation: 05/09/17 - General : 2 Para: 1 Expected Date of Delivery: 05/30/17 Estimated or Known Gestational Age (weeks): 37 Estimated or Known Gestational Age (days): 0 - Preoperative Diagnosis Previous Section, Gestational Diabetes Preoperative Diagnosis: CHTN, [place] palsy - Procedure Repeat - Surgeon Surgeon: Dipesh Obregon DO - [employer] Ax Consultant OB [employer] Consultant: Marshall Ayoub MD - Anesthesia Anesthesia Provider: Donavan Patel CRNA Anesthesia Type: Spinal - Estimated Blood Loss Estimated Blood Loss:: 800 - Findings Findings: viable male - APGARS : 899 - [place] Weight [place] Weight (grams): 3652 - Name Name: Crew - Indications Indications: Poorly controlled ID GDM - Description of Procedure Description of Procedure: See dictation
[2017-05-09] MEDS ORDERED: HYDROCORTISONE 2.5% CREAM 30gm RECTALLY PRN (08:36)
[2017-05-09] MEDS ORDERED: CALCIUM CARBONATE Chewable 500mg TABLET PO PRN (08:36)
[2017-05-09] MEDS ORDERED: ACETAMINOPHEN 500 MG TABLET PO PRN (08:36)
[2017-05-09] MEDS ORDERED: DiphenhydrAMINE 25 MG CAPSULE PO PRN (08:36)
[2017-05-09] MEDS ORDERED: ONDANSETRON 4 MG/2 ML INJECTION IVP PRN (08:39)
[2017-05-09] MEDS ORDERED: NALOXONE 2 MG/2 ML INJECTION PFS IVP PRN (08:39)
[2017-05-09] MEDS ORDERED: NALBUPHINE 10 MG/ML INJECTION IVP PRN (08:39)
[2017-05-09] MEDS ORDERED: D5LR 1,000 ML IV SCH (08:45)
[2017-05-09] MEDS ORDERED: OXYTOCIN DRIP 30 UNIT/500 ML ML IV SCH (08:45)
[2017-05-09] MEDS: IBUPROFEN 800 MG TABLET PO PRN ×2 (10:35→20:44)
--- NOTE | 2017-05-09 11:00 | Operative Note ---
DATE OF SERVICE 05/09/2017 PREOPERATIVE DIAGNOSES 1. Previous section x 1. 2. Poorly controlled insulin-dependent gestational diabetes. 3. Chronic hypertension. 4. Mae's palsy. POSTOPERATIVE DIAGNOSES 1. Previous section x 1. 2. Poorly controlled insulin-dependent gestational diabetes. 3. Chronic hypertension. 4. Mae's palsy. 5. Delivered. PROCEDURE Repeat low transverse section via a Pfannenstiel incision. SURGEON Dr. Dipesh Obregon DO GENERAL PRODUCTION WORKER Dr. Marshall Ayoub MD ANESTHESIA PROVIDER Donavan Patel CRNA ANESTHESIA TYPE Spinal-epidural. ESTIMATED BLOOD LOSS 800 mL IV FLUIDS 1500 mL during the procedure and urine output was 100 mL clear urine at the end of the procedure. FINDINGS Viable male infant with Apgars 89, named Crew, with a weight of 3652 g. INDICATIONS FOR PROCEDURE This is a G2, P1 with one prior delivery at 37 weeks who presents for repeat section secondary to poorly controlled gestational diabetes. DESCRIPTION OF PROCEDURE The patient was taken to the operating room where spinal-epidural was found to be adequate. She was then prepped and draped in the dorsal lithotomy position with a leftward tilt. A Pfannenstiel skin incision was made and carried through the underlying layers of fascia. The fascia was then incised in the midline and the fascial incision was then extended laterally with the Alberto scissors. The superior aspect of the fascial incision was grasped with a Silviano clamp, elevated and the rectus muscle was dissected off sharply with the scalpel. Attention was turned to the inferior aspect of the fascial incision. It was grasped with a Silviano clamp, elevated and the rectus muscle was dissected off with the Alberto scissors. At this time the peritoneum was entered bluntly and the peritoneal incision was then extended superiorly and inferiorly with good visualization of the bladder. The bladder blade was inserted. The vesicouterine peritoneum was identified, picked up and a bladder flap was made. Bladder blade was then reinserted and the uterine incision was made in a transverse fashion. The uterine incision was then extended with cephalad- caudad traction. The infant's head was then delivered atraumatically in the cephalic position. Nose and mouth were suctioned. Loose nuchal x 1 was reduced and the infant was delivered. Cord was clamped and cut and the infant was handed to the athletic training internship who was waiting. At this time the uterus was exteriorized and cleared of all clot and debris. The uterine incision was then repaired with 0 Monocryl in a running locked fashion. The same suture was used in a [id number] in the right uterine angle to obtain excellent hemostasis. At this time the posterior cul-de-sac was cleared of all clot and debris and the uterus was returned to the abdomen. The gutters were cleared of all clot and debris and again excellent hemostasis was noted. The peritoneum was then closed with 3-0 Monocryl in a running fashion. The fascia was closed with 0 Vicryl in a running fashion. The subcuticular tissue was then closed with 4-0 plain gut and the skin was closed with 4-0 Monocryl and Dermabond. The patient tolerated the procedure well. Sponge, lap and needle counts were correct x 2, and the patient was taken to Recovery Room in stable condition. YOGESH
[2017-05-09] MEDS: SIMETHICONE 80 MG CHEWABLE TABLET PO SCH ×4 (11:02→22:24)
[2017-05-09] MEDS: MetroNIDAZOLE 500 MG TABLET PO SCH ×3 (11:02→22:24)
[2017-05-09] MEDS: DOCUSATE CALCIUM 240 MG CAPSULE PO SCH (11:45)
[2017-05-09] MEDS: Oxycodone/Acetaminophen 5/325 1 TAB PO PRN (17:54)
[2017-05-10] MEDS: Oxycodone/Acetaminophen 5/325 1 TAB PO PRN ×5 (00:45→21:06)
[2017-05-10] MEDS: SIMETHICONE 80 MG CHEWABLE TABLET PO PRN ×2 (06:08→09:27)
[2017-05-10] MEDS: IBUPROFEN 800 MG TABLET PO PRN ×2 (08:25→16:52)
[2017-05-10] MEDS: MetroNIDAZOLE 500 MG TABLET PO SCH ×3 (09:27→21:06)
--- NOTE | 2017-05-10 09:29 | OB/GYN Progress Note ---
OB-PP Progress Note - General PPD1 POD:: POD1 Maternal Group B Strep: Negative Maternal blood type: O+ Maternal Rubella Status: Immune - Subjective Date: 05/10/17 Lochia: Minimal Pain: controlled Voiding: voiding Nausea or Vomiting Present: No - Objective Vital Signs: Last Vital Signs Temp 98.0 F 05/10/17 06:00 Pulse 90 05/10/17 06:00 Resp 18 05/10/17 06:00 BP 128/79 05/10/17 06:00 Pulse Ox 97 05/10/17 06:00 Laboratory Results - last 24 hr 05/09/17 05/10/17 12:15 06:06 WBC 11.3 H D RBC 3.65 L Hgb 10.5 L Hct 33.1 L MCV 90.7 MCH 28.8 MCHC 31.7 RDW Std Deviation 44.5 Plt Count 174 MPV 10.5 Glucometer 74 General: alert and oriented Cardiovascular: regular rate,rhythm Respiratory: non-labored Abdomen: fundus firm Incision: normal, clean, dry, intact Extremities: non-tender Laboratory: Laboratory Results - last 24 hr 05/09/17 05/10/17 12:15 06:06 WBC 11.3 H D RBC 3.65 L Hgb 10.5 L Hct 33.1 L MCV 90.7 MCH 28.8 MCHC 31.7 RDW Std Deviation 44.5 Plt Count 174 MPV 10.5 Glucometer 74 - Assessment Assessment: SP, Repeat C/S Vaccines: ID GDM - Plan Plan: routine care Fasting 73
[2017-05-10] MEDS: DOCUSATE CALCIUM 240 MG CAPSULE PO SCH ×2 (10:55→14:41)
[2017-05-10] MEDS: SIMETHICONE 80 MG CHEWABLE TABLET PO SCH ×3 (11:32→21:06)
[2017-05-11] MEDS: IBUPROFEN 800 MG TABLET PO PRN ×2 (01:09→09:11)
[2017-05-11] MEDS: SIMETHICONE 80 MG CHEWABLE TABLET PO SCH ×2 (01:47→08:30)
[2017-05-11] MEDS: Oxycodone/Acetaminophen 5/325 1 TAB PO PRN (04:28)
[2017-05-11 06:19] VITALS: BP 123/86; PULSE 78; RESP 17; TEMP 97.8; O2SAT 99
[2017-05-11] MEDS: DOCUSATE CALCIUM 240 MG CAPSULE PO SCH (08:30)
--- NOTE | 2017-05-11 09:29 | OB/GYN Progress Note ---
OB-PP Progress Note - General PPD2 POD:: POD2 Maternal Group B Strep: Negative Maternal blood type: O+ Maternal Rubella Status: Immune - Subjective Date: 05/11/17 Lochia: Minimal Pain: controlled Voiding: voiding Nausea or Vomiting Present: Yes - Objective Vital Signs: Last Vital Signs Temp 97.8 F 05/11/17 05:55 Pulse 78 05/11/17 05:55 Resp 17 05/11/17 05:55 BP 123/86 05/11/17 05:55 Pulse Ox 99 05/11/17 05:55 Urine Output: good General: alert and oriented Cardiovascular: regular rate,rhythm Respiratory: non-labored Abdomen: fundus firm, non-tender Incision: normal, clean, dry, intact Extremities: non-tender Edema: none Laboratory: Laboratory Results - last 24 hr 05/11/17 05:54 Glucometer 76 - Assessment Assessment: Repeat C/S - Plan Plan: routine care Expected date of discharge: 05/11/17
== END 2017-05-11 11:20 | disposition home or self-care (01) | DRG 765 ==
LOC: MC 05:28
PROVIDERS: ADMIT Obstetrics & Gynecology; ATTEND Obstetrics & Gynecology